=== PATIENT | female | born 1965 | race African-American/Black ===

== ENCOUNTER 2016-05-25 10:28 | Emergency (ER) | payer SELFPAY ==
[2016-05-25] MEDS ORDERED: ALBUTEROL SULFATE 0.083% NEB 2.5 MG/3 ML AMPUL NEB ONE (10:46)
[2016-05-25] MEDS ORDERED: PREDNISONE 20 MG TABLET PO ONE (10:46)
--- NOTE | 2016-05-25 10:48 | ER Document Report ---
ED Medical Screen (RME) - General Stated Complaint: CHEST CONGESTION Time seen by provider: 10:47 Mode of Arrival: Ambulatory Information source: Patient Notes: 50-year-old nonsmoker female complaining of chest congestion and cough since Tuesday night. expiratory Wheezing in the right Physical Exam - Vital signs Vitals: Temp Pulse Resp BP Pulse Ox 97.9 F 90 16 126/71 H 99 05/25/16 10:39 05/25/16 10:39 05/25/16 10:39 05/25/16 10:39 05/25/16 10:39 Course - Vital Signs Vital signs: Temp Pulse Resp BP Pulse Ox 97.9 F 90 16 126/71 H 99 05/25/16 10:39 05/25/16 10:39 05/25/16 10:39 05/25/16 10:39 05/25/16 10:39
--- NOTE | 2016-05-25 11:16 | ER Document Report ---
HPI - HPI Patient complains to provider of: cold symptoms Onset: Other - 2 days Onset/Duration: Gradual Quality of pain: Achy Pain Level: 4 Context: Patient reports productive cough and congestion for the past 2 days. Patient states she's had some wheezing. Patient denies any chest pain or fever. Patient states she's been around several people recently with flulike symptoms. Associated Symptoms: Productive cough, Rhinnorhea. denies: Chest pain, Fever, Shortness of breath, Sore throat Exacerbated by: Denies Relieved by: Denies Similar symptoms previously: Yes Recently seen / treated by doctor: No - ROS ROS below otherwise negative: Yes Systems Reviewed and Negative: Yes All other systems reviewed and negative - CONSTITUTIONAL Constitutional: DENIES: Fever, Chills - EENT EENT: REPORTS: Nasal Drainage-Clear, Congestion. DENIES: Sore Throat - CARDIOVASCULAR Cardiovascular: DENIES: Chest pain - RESPIRATORY Respiratory: REPORTS: Coughing. DENIES: Trouble Breathing - GASTROINTESTINAL Gastrointestinal: DENIES: Patient vomiting - REPRODUCTIVE LMP: 05/04/16 - MUSCULOSKELETAL Musculoskeletal: DENIES: Back Pain - DERM Skin Color: Normal Skin Problems: None Past Medical History - General Information source: Patient - Social History Smoking Status: Never Smoker Chew tobacco use (# tins/day): No Drug Abuse: None Occupation: patient care Family History: Reviewed & Not Pertinent Patient has suicidal ideation: No Patient has homicidal ideation: No - Medical History Medical History: Negative Surgical Hx: Negative Vertical Provider Document - CONSTITUTIONAL Agree With Documented VS: Yes Exam Limitations: No Limitations General Appearance: WD/WN, No Apparent Distress - INFECTION CONTROL TRAVEL OUTSIDE OF THE [place] IN LAST 30 DAYS: No - HEENT HEENT: Atraumatic, Normocephalic. negative: Pharyngeal Exudate, Pharyngeal Tenderness, Pharyngeal Erythema, Tympanic Membrane Red, Tympanic Membrane Bulging Notes: Clear rhinorrhea, swollen nasal mucosa - NECK Neck: Normal Inspection, Supple. negative: Lymphadenopathy-Left, Lymphadenopathy-Right - RESPIRATORY Respiratory: No Respiratory Distress, Chest Non-Tender, Wheezing - Only with coughing O2 Sat by Pulse Oximetry: 99 - CARDIOVASCULAR Cardiovascular: Regular Rate, Regular Rhythm, No Murmur - MUSCULOSKELETAL/EXTREMETIES Musculoskeletal/Extremeties: MAEW - NEURO Level of Consciousness: Awake, Alert, Appropriate Motor/Sensory: No Motor Deficit - DERM Integumentary: Warm, Dry, No Rash Course - Re-evaluation Re-evalutation: 05/25/16 11:30 Patient with good air movement after nebulizer treatment. Wheezing decreased after treatment. - Vital Signs Vital signs: Temp Pulse Resp BP Pulse Ox 97.9 F 90 16 126/71 H 99 05/25/16 10:39 05/25/16 10:39 05/25/16 10:39 05/25/16 10:39 05/25/16 10:39 - Diagnostic Test Radiology reviewed: Image reviewed, Reports reviewed Discharge - Discharge Clinical Impression: Bronchospasm Upper respiratory infection Qualifiers: URI type: unspecified URI Qualified Code(s): J06.9 - Acute upper respiratory infection, unspecified Condition: Stable Disposition: HOME, SELF-CARE Additional Instructions: Return immediately for any new or worsening symptoms Followup with your primary care provider,in [place], call tomorrow to make a followup appointment Use saline nasal spray [id number] to help with nasal congestion Continue to use Mucinex [id number] as directed to help with congestion symptoms. UPPER RESPIRATORY ILLNESS: You have a viral infection of the respiratory passages -- a "cold." This common infection causes nasal congestion, drainage, and often sore throat and cough. It is highly contagious. The disease usually lasts about 10 to 14 days. There is no "cure" for the viral infection -- it must run its course. If there is a complication, such as bacterial infection in the nose, sinuses, middle ear, or bronchial tubes, antibiotics may be required. The antibiotics won't affect the virus. Drink plenty of fluids. A humidifier may help. An expectorant medication or decongestant may make you more comfortable. Use acetaminophen or ibuprofen for fever or aches. See the doctor if fever persists over two days, if there is any significant worsening of your symptoms, or if you simply fail to improve as expected. BRONCHOSPASM: You have tightness in the bronchial tubes, called bronchospasm. This often occurs with bronchial infections. Allergies, inhaled chemicals, and polluted or cold air can also provoke bronchospasm. It's more likely in patients with asthma in the family. Emergency treatment of bronchospasm may include adrenaline shots or bronchodilator aerosol. You may feel lightheaded and have a rapid pulse for an hour or two. Rest and get plenty of fluids. At home, we'll treat you with a bronchodilator inhaler. Antibiotics and corticosteroids may be required for some patients. Until you recover, avoid chemical fumes, dusts, pollens, and exercising in very cold or dry air. If you smoke, stop now!! If you develop a fever, increased wheezing, chest pain, or severe shortness of breath, you should contact the doctor immediately. INHALED BRONCHODILATORS: You have received a treatment of and/or prescription for an inhaled bronchodilator -- a medication which stimulates the airways in the lung to dilate. This improves the flow of air in asthma, bronchitis, and emphysema. These medicines have some similarity to adrenaline, and can cause similar side effects: shakiness, racing heart, and a sense of nervousness. These side effects decrease with time. Contact your doctor if these side effects are severe. Do not over-use the medicine. Too-frequent use of the inhaler may make it ineffective. Call your doctor if the inhaler is not controlling your symptoms at the prescribed doses. STEROID MEDICATION: You have been given an injection of or oral medicine of the cortisone/ steroid class. This medication is used to control inflammation or allergy. Arthur t is usually only given for a short period of time, until the acute process subsides. There are usually no side effects from short-term use of cortisone-like medications. Some persons feel an increased sense of well-being and are not sleepy at bedtime. Long-term use of cortisone medications is best avoided, unless required for a severe condition. If your condition does not remit, or relapses after the course of corticosteroid medication, you should consult your physician. USE OF ACETAMINOPHEN (Tylenol): Acetaminophen may be taken for pain relief or fever control. It's much safer than aspirin, offering a wider range of "safe" dosages. It is safe during . Some brand names are Tylenol, Panadol, Datril, Anacin 3, Tempra, and Liquiprin. Acetaminophen can be repeated every four hours. The following are maximum recommended dosages: >89 pounds or adults 650 mg to 900 mg Acetaminophen can be repeated every four hours. Maximum dose not to exceed 4000 mg a day. FOLLOW-UP CARE: If you have been referred to a physician for follow-up care, call the physician s office for an appointment as you were instructed or within the next two days. If you experience worsening or a significant change in your symptoms, notify the physician immediately or return to the Emergency Department at any time for re-evaluation. Prescriptions: Albuterol Sulfate [Ventolin Hfa] 2 puff IH Q4HP PRN #17 gm PRN Reason: Inhaler,Assist Device,Accesory [Optichamber] 1 each MC Q4 PRN #1 each PRN Reason: Prednisone [Deltasone 20 mg Tablet] 3 tab PO DAILY 4 Days Forms: Return to Work
[2016-05-25 12:04] VITALS: BP 120/79
== END 2016-05-25 11:48 | disposition home or self-care (01) ==
LOC: ER 10:28
DX: J06.9 Acute upper respiratory infection, unspecified (principal); J98.01 Acute bronchospasm; R05 Cough; R06.2 Wheezing; J34.89 Other specified disorders of nose and nasal sinuses
CPT/HCPCS: 94640; 99283; 71020; J7512

== ENCOUNTER 2016-05-25 21:38 | Emergency (ER) | payer SELFPAY ==
--- NOTE | 2016-05-25 21:48 | ER Document Report ---
ED Medical Screen (RME) - General Stated Complaint: FAST HEART RATE Time seen by provider: 21:47 Mode of Arrival: Ambulatory Information source: Patient Notes: 50-year-old female complaining of irregular heartbeat and it is beating too fast. It started after she took prednisone today for bronchitis and viral infection. TRAVEL OUTSIDE OF THE [place] IN LAST 30 DAYS: No - Related Data Allergies/Adverse Reactions: No Known Allergies Allergy (Verified 05/25/16 10:48)
[2016-05-25 22:28] LABS: ABSOLUTE LYMPHOCYTES (AUTO) 0.4 10^3/uL (0.5-4.7); ABSOLUTE MONOCYTES (AUTO) 0.2 10^3/uL (0.1-1.4); ABSOLUTE NEUT (AUTO) 7.5 10^3/uL (1.7-8.2); BASOPHILS % (AUTO) 0.2 % (0-2); HEMATOCRIT 39.5 % (36.0-47.0); HEMOGLOBIN 12.4 g/dL (12.0-15.5); HGB HCT DIFFERENCE -2.3; LYMPHOCYTES % (AUTO) 5.5 % (13-45); MEAN CORPUSCULAR HEMOGLOBIN 24.2 pg (27.0-33.4); MEAN CORPUSCULAR HGB CONC 31.3 g/dL (32.0-36.0); MEAN CORPUSCULAR VOLUME 77 fl (80-97); MONOCYTES % (AUTO) 2.2 % (3-13); RED BLOOD COUNT 5.11 10^6/uL (3.72-5.28); RED CELL DISTRIBUTION WIDTH 14.6 % (11.5-14.0); SEGMENTED NEUTROPHILS % (AUTO) 92.1 % (42-78); WHITE BLOOD COUNT 8.1 10^3/uL (4.0-10.5)
[2016-05-25 22:44] LABS: ALANINE AMINOTRANSFERASE 342 U/L (9-52); ALBUMIN 4.4 g/dL (3.5-5.0); ALKALINE PHOSPHATASE 191 U/L (38-126); ANION GAP 14 (5-19); ASPARTATE AMINO TRANSFERASE 341 U/L (14-36); BILIRUBIN,TOTAL 0.5 mg/dL (0.2-1.3); BLOOD UREA NITROGEN 6 mg/dL (7-20); CALCIUM 9.7 mg/dL (8.4-10.2); CARBON DIOXIDE 22 mmol/L (22-30); CHLORIDE 103 mmol/L (98-107); CREATININE RESULT 0.53 mg/dL (0.52-1.25); GLUCOSE 237 mg/dL (75-110); POTASSIUM 4.3 mmol/L (3.6-5.0); SODIUM 138.8 mmol/L (137-145); TOTAL PROTEIN 7.8 g/dL (6.3-8.2)
--- NOTE | 2016-05-26 02:16 | ER Document Report ---
ED Cardiac - General Chief Complaint: Irregular Pulse Stated Complaint: FAST HEART RATE Time seen by provider: 02:11 Mode of Arrival: Ambulatory Information source: Patient TRAVEL OUTSIDE OF THE [place] IN LAST 30 DAYS: No - HPI Patient complains to provider of: Palpitations Use of: Other - Albuterol inhaler and prednisone Was the onset of pain: Sudden Is the pain a: New problem Quality of pain: None Chest pain precipitating factors: At Rest Positive cardiac history: No Associated symptoms: Palpitations Exacerbated by: Denies Relieved by: Nothing Similar symptoms previously: No Recently seen / treated by doctor: Yes Notes: Patient is a 50-year-old female with no past medical history presenting to the emergency room complaining of palpitations that began this evening after taking prednisone and using an albuterol inhaler, these medications were prescribed to her earlier in the day when she was seen in the emergency room for viral bronchitis, she denies ever taking either of these medications prior to today, patient denies any fever, no nausea, vomiting or diarrhea, no abdominal pain, no chest pain, no shortness of breath at present time - Related Data Allergies/Adverse Reactions: No Known Allergies Allergy (Verified 05/25/16 10:48) Past Medical History - General Information source: Patient - Social History Smoking Status: Never Smoker Family History: Reviewed & Not Pertinent Patient has suicidal ideation: No Patient has homicidal ideation: No Review of Systems - Review of Systems Constitutional: No symptoms reported EENT: No symptoms reported Cardiovascular: Palpitations Respiratory: Cough, Short of breath, Wheezing Gastrointestinal: No symptoms reported Genitourinary: No symptoms reported Female Genitourinary: No symptoms reported Musculoskeletal: No symptoms reported Skin: No symptoms reported Hematologic/Lymphatic: No symptoms reported Neurological/Psychological: No symptoms reported -: Yes All other systems reviewed and negative Physical Exam - Vital signs Vitals: Temp Pulse BP Pulse Ox 97.9 F 116 H 145/70 H 98 05/25/16 21:48 05/25/16 21:48 05/25/16 21:48 05/25/16 21:48 Interpretation: Tachycardic - General General appearance: Appears well, Alert - HEENT Head: Normocephalic, Atraumatic Eyes: Normal Pupils: PERRL - Respiratory Respiratory status: No respiratory distress Chest status: Nontender Breath sounds: Normal Chest palpation: Normal - Cardiovascular Rhythm: Regular Heart sounds: Normal auscultation Murmur: No - Abdominal Inspection: Obese Distension: No distension Bowel sounds: Normal Tenderness: Nontender Organomegaly: No organomegaly - Back Back: Normal, Nontender - Extremities General upper extremity: Normal inspection, Nontender, Normal color, Normal ROM , Normal temperature General lower extremity: Normal inspection, Nontender, Normal color, Normal ROM , Normal temperature, Normal weight bearing. No: Dorene's sign - Neurological Neuro grossly intact: Yes Cognition: Normal Orientation: AAOx4 Jesus Coma Scale Eye Opening: Spontaneous Jesus Coma Scale Verbal: Oriented Jesus Coma Scale Motor: Obeys Commands [place] Coma Scale Total: 15 Speech: Normal Motor strength normal: LUE, RUE, LLE, RLE Sensory: Normal - Psychological Associated symptoms: Normal affect, Normal mood - Skin Skin Temperature: Warm Skin Moisture: Dry Skin Color: Normal Course - Re-evaluation Re-evalutation: 05/26/16 02:14 Patient resting comfortably, no acute distress, lungs are clear to auscultation , symptoms are likely related to use of albuterol inhaler, patient's labs were discussed with her at bedside which do include a elevation in liver enzymes and glucose, she has no abdominal pain and no other symptoms, abdomen is soft and nontender especially in the right upper quadrant, patient was advised to follow- up with a primary care provider in the next 1-2 weeks for further evaluation and repeat labs, considering she had a dose of steroids earlier in the morning I will not start her on medication to treat her hyperglycemia but once again advised her to follow-up to have this reevaluated, patient acknowledges understanding and agreement with this plan - Vital Signs Vital signs: Temp Pulse Resp BP Pulse Ox 98.1 F 110 H 16 152/75 H 100 05/25/16 23:38 05/25/16 23:38 05/25/16 23:38 05/25/16 23:38 05/25/16 23:38 - Laboratory Result Diagrams: 05/25/16 22:15 05/25/16 22:15 Laboratory results interpreted by me: 05/25/16 05/25/16 22:15 22:15 MCV 77 L MCH 24.2 L MCHC 31.3 L RDW 14.6 H Seg Neutrophils % 92.1 H Lymphocytes % 5.5 L Monocytes % 2.2 L Absolute Lymphocytes 0.4 L BUN 6 L Glucose 237 H AST 341 H ALT 342 H Alkaline Phosphatase 191 H - EKG Interpretation by Ks EKG shows normal: Sinus rhythm Rate: Tachycardia - 106 Discharge - Discharge Clinical Impression: Palpitations, Elevated liver enzymes, Hyperglycemia, drug-induced Upper respiratory infection Qualifiers: URI type: unspecified URI Qualified Code(s): J06.9 - Acute upper respiratory infection, unspecified Condition: Stable Disposition: HOME, SELF-CARE Instructions: Upper Respiratory Illness ([facility]), Viral Syndrome ([facility]), Palpitations (Irregular or Rapid Heartrate) ([facility]), Liver Function Abnormality ( [facility]), Hyperglycemia ([facility]) Additional Instructions: Discontinue prednisone. Use albuterol inhaler as needed for wheezing or shortness of breath. Side effects related to albuterol inhaler are increased heart rate, palpitations or jittery sensation. This should subside without any lasting issues. Your liver enzymes and your blood sugar are slightly elevated today. You should follow-up with a primary care provider within the next 1-2 weeks for repeat evaluation of this. Return to the emergency room immediately if your symptoms worsen in any way or you have any additional concerns.
[2016-05-26 02:17] VITALS: BP 133/72
--- NOTE | 2016-05-26 13:40 | EKG REPORT ---
SEVERITY:- BORDERLINE ECG - SINUS TACHYCARDIA TALL R WAVE IN V2, CONSIDER RVH OR PMI BORDERLINE T WAVE ABNORMALITIES : Confirmed by: Wilma Coelho MD 26-May-2016 13:39:20
== END 2016-05-26 02:28 | disposition home or self-care (01) ==
LOC: ER 21:38
DX: R73.9 Hyperglycemia, unspecified (principal); R74.8 Abnormal levels of other serum enzymes; R00.2 Palpitations; T50.905A Adverse effect of unspecified drugs, medicaments and biological substances, initial encounter; R00.0 Tachycardia, unspecified; J40 Bronchitis, not specified as acute or chronic; B97.89 Other viral agents as the cause of diseases classified elsewhere
CPT/HCPCS: 36415; 80053; 84443; 85025; 93005; 93010; 99285